=== PATIENT | female | born 1975 | race Native Hawaiian/Other Pacific Islander ===

== ENCOUNTER 2021-01-28 09:58 | Day surgery (SDC) | payer OTHER ==
[2021-01-22 14:46] LABS: PLATELET COUNT 282 K/uL (152-353)
[2021-01-22 14:57] LABS: POTASSIUM 3.6 mmol/L (3.6-5.2)
[~2021-01-28] VITALS: Ht 30.5 cm; Wt 0.5 kg
== END 2021-01-28 12:15 | disposition home or self-care (01) ==
LOC: OR 09:58
PROVIDERS: ATTEND Internal Medicine Gastroenterology
PROC: 0DBN8ZZ Excision of Sigmoid Colon, Via Natural or Artificial Opening Endoscopic (ICD-10-PCS; principal; 2021-01-28)
DX: K63.5 Polyp of colon (principal); K64.8 Other hemorrhoids; Z12.11 Encounter for screening for malignant neoplasm of colon; Z80.0 Family history of malignant neoplasm of digestive organs; Z20.822 Contact with and (suspected) exposure to COVID-19
CPT/HCPCS: 80053; 85027; 87635; J2704; U0003